=== PATIENT | male | born 1965 | race Asian ===

== ENCOUNTER 2023-08-17 16:51 | Emergency (ER) | payer MEDICAID, OTHER ==
[~2023-08-17] VITALS: Ht 177.8 cm; Wt 83.6 kg
[2023-08-17 17:03] VITALS: BP 133/75; PULSE 78; RESP 20; TEMP 98; O2SAT 95
== END 2023-08-17 18:51 | disposition home or self-care (01) ==
LOC: ER 16:51
DX: S13.4XXA Sprain of ligaments of cervical spine, initial encounter (principal); V89.2XXA Person injured in unspecified motor-vehicle accident, traffic, initial encounter; Y93.89 Activity, other specified; Y92.89 Other specified places as the place of occurrence of the external cause; Y99.8 Other external cause status
CPT/HCPCS: 72050; 99283